=== PATIENT | female | born 1995 | race American Indian/Alaskan Native ===

== ENCOUNTER → 2022-01-05 19:05 | Outpatient (CLI) | payer OTHER, MEDICAID, SELFPAY | PROVIDERS: Visit Provider Physician Assistant | DX: J02.9 Acute pharyngitis, unspecified (principal) | CPT/HCPCS: 87070 ==

== ENCOUNTER 2025-01-18 14:44 | Emergency (ER) | payer OTHER, SELFPAY ==
[2025-01-18 14:58] VITALS: BP 144/67; PULSE 114; RESP 18; TEMP 36.8; O2SAT 95; BMI 38.9
[2025-01-18 15:41] LABS: Strep Grp A by PCR Rapid Negative (Negative)
--- NOTE | 2025-01-18 16:34 | ED_ITS ---
HPI - URI/Sore Throat General Chief Complaint: Upper Respiratory Symptoms Stated Complaint: Strep Throat, Blood in Urine Time Seen by Provider: 01/18/25 16:27 Source: patient Mode of arrival: Ambulatory History of Present Illness HPI Narrative: 29-year-old female presents with fever, chills, body aches, sore throat, dysuria, hematuria, started to 3 days ago despite finishing off clindamycin recently for strep throat. Other than what is stated 14 point review of system is negative. Related Data Previous Rx's ?Medication ?Instructions ?Recorded cephalexin 500 mg capsule 500 mg PO Q12H #20 caps 01/05 11/29 Allergies Allergy/AdvReac Type Severity Reaction Status Date / Time peanuts Allergy Severe Swelling Uncoded 01/18/25 14:58 of Lip/Tongue/Throat Review of Systems Review of Systems ROS Unobtainable: All systems reviewed & are unremarkable except as noted in HPI and below Patient History Smoking Status: Never smoker Exam Narrative Exam Narrative: GENERAL: [29] year old patient appears stated age. Well-developed patient, in mild distress. HEAD: Atraumatic. Normocephalic. EYES: Pupils equal round and reactive. Extraocular motions intact. No scleral icterus. No injection or drainage. ENT: Nose without bleeding, purulent drainage. Throat erythema, tonsillar hypertrophy. Airway patent. NECK: Trachea midline. Non tender CARDIOVASCULAR: Regular rate and rhythm without murmurs, gallops, or rubs. RESPIRATORY: Clear to auscultation. Breath sounds equal bilaterally. No wheezes, rales, or rhonchi. GASTROINTESTINAL: Abdomen soft, non-tender, nondistended. EXTREMITIES: No edema or joint tenderness. BACK: Nontender without deformity or crepitance. No flank tenderness. NEURO: AOx3. SKIN: No rash or erythema of visible areas Initial Vital Signs Initial Vital Signs: Vital Signs Temperature 98.3 F 01/18/25 14:58 Pulse Rate 114 H 01/18/25 14:58 Respiratory Rate 18 01/18/25 14:58 Blood Pressure 144/67 H 01/18/25 14:58 Pulse Oximetry 95 01/18/25 14:58 Oxygen Delivery Method Room Air 01/18/25 14:58 Course Orders Ordered: ED Orders 01/18/25 15:12 Strep Grp A by PCR Rapid Stat Urine Microscopic Stat 01/18/25 16:25 Throat Culture Stat Vital Signs Vital signs: Vital Signs - 8 hr 01/18/25 14:58 Temperature 98.3 F Pulse Rate 114 H Respiratory Rate 18 Blood Pressure 144/67 H Pulse Oximetry 95 Oxygen Delivery Method Room Air MDM - URI/Sore Throat Lab Data Labs: Lab Results 01/18/25 Range/Units 15:12 Group A Strep (PCR) Negative (Negative) Point of Care Testing Test Results Negative Urine Dip Bedside Urine Glucose Negative Bedside Urine Bilirubin - Negative Bedside Urine Ketone - Negative Urine Specific [place] 1.010 Bedside Urine Occult Blood +++ Bedside Urine pH 6.0 Bedside Urine Protein - Negative Bedside Urine Urobilinogen - Negative Bedside Urine Nitrite - Negative Bedside Urine Leukocytes +++ 500 Esterase MDM Narrative Medical decision making narrative: Vital signs, nurse triage note, medication list, previous ER visits, and all imaging studies reviewed. Differential diagnosis includes strep tonsillitis pharyngitis COVID flu RSV, UTI. DC home on cephalexin antibiotic 1st dose given here. Discharge Plan Departure Patient Disposition: Home Clinical Impression: Acute bacterial tonsillitis Instructions: Urinary Tract Infection, DI for Pharyngitis/Tonsillopharyngitis -- Adult Activity Restrictions/Additional Instructions: Return with new or worsening symptoms. Take your medicines as directed and keep hydrated. Prescriptions: New cephalexin 500 mg capsule 500 mg PO Q12H Qty: 20 0RF Referrals: Miscellaneous,Doctor [Primary Care Provider, Medical] Stand Alone Forms: Patient Portal/API
[2025-01-18 16:46] VITALS: BP 129/67; PULSE 105; RESP 16; O2SAT 98
[2025-01-18] MEDS: cephALEXin 250 MG CAPSULE 500 MG PO (16:46)
[2025-01-18 17:02] LABS: Bacteria Urine Many (>30); Culture Indicated Urine Specimen Cultured; RBC Urine 1-5/HPF (0-5/HPF); Squamous Epithelial Cell Urine None Seen (0-5/HPF); Urine Volume 10mL (spun); WBC Urine 10-30/HPF (0-5/HPF)
== END 2025-01-18 16:55 | disposition home or self-care (01) ==
PROVIDERS: Emergency Provider Family Medicine
DX: J03.80 Acute tonsillitis due to other specified organisms (principal)
CPT/HCPCS: 81003; 81015; 81025; 87070; 87077; 87086; 87186; 87651; 99283